=== PATIENT | female | born 1965 | race Caucasian/White ===

== ENCOUNTER 2016-08-25 09:02 | Emergency (ER) | payer OTHER ==
[~2016-08-25] VITALS: Ht 165.1 cm; Wt 80.3 kg
[~2016-08-25 09:02] MED LIST: AMITRIPTYLINE H10 MG PO; AMLODIPINE BESYL5 MG PO; Fioricet 325 MG1 TAB PO; LIPITOR40 MG PO; SERTRALINE HYDR50 MG PO
[2016-08-25] MEDS ORDERED: ESOMEPRAZOLE MA40 M1 PO (09:12)
[2016-08-25] MEDS ORDERED: MONTELUKAST SOD10 MG PO (09:12)
[2016-08-25] MEDS ORDERED: LISINOPRIL20 MG PO (09:13)
[2016-08-25 09:46] LABS: BASO % 0.3 % (0.0-1.0); EOS % 0.4 % (1.0-4.0); HEMATOCRIT 36.6 % (37.0-47.0); HEMOGLOBIN 12.2 g/dl (12.0-16.0); LYMPH # 1.1 10*3/uL (1.3-4.4); LYMPH % 11.5 % (27.0-41.0); MEAN CELL VOLUME 93.4 fl (81.0-99.0); MEAN CORPUSCULAR HGB 31.1 pg (27.0-31.0); MEAN CORPUSCULAR HGB CONC 33.3 g/dl (33.0-37.0); MEAN PLATELET VOLUME 9.9 fl (9.6-12.3); MONO # 0.9 10*3/uL (0.1-1.0); NEUT # 7.7 10*3/uL (2.3-7.9); NEUT % 78.5 % (47.0-73.0); PLATELET COUNT AUTOMATED 330 10*3/uL (130-400); RED BLOOD COUNT 3.92 10*6/uL (4.10-5.10); RED CELL DISTRI WIDTH 12.1 % (0-14.5); WHITE BLOOD COUNT 9.8 10*3/uL (4.8-10.8)
[2016-08-25 10:04] LABS: ALKALINE PHOSPHATASE 63 U/L (45-117); BILIRUBIN, TOTAL 0.5 mg/dl (0.2-1.0); BUN 14 mg/dl (7-24); CARBON DIOXIDE 22 mmol/L (21-32); CHLORIDE 108 mmol/L (98-107); EST GLOM FILT AFRICAN AMERICAN > 60 ml/min; GLUCOSE 99 mg/dL (65-99); POTASSIUM 4.1 mmol/L (3.5-5.1); SGOT/AST 21 IU/L (3-35); SGPT/ALT 41 U/L (12-78); SODIUM 142 mmol/L (136-145)
[2016-08-25] MEDS ORDERED: TESSALON PERLE100 M1 PO (10:19)
[2016-08-25] MEDS ORDERED: AMOXICILLIN500 M2 PO (10:19)
== END 2016-08-25 10:30 | disposition home or self-care (01) ==
LOC: ED 09:02
PROVIDERS: Nurse Practitioner Family
DX: J20.9 Acute bronchitis, unspecified (principal); Z88.8 Allergy status to other drugs, medicaments and biological substances; Z79.899 Other long term (current) drug therapy